=== PATIENT | female | born 1990 | race Caucasian/White ===

== ENCOUNTER 2017-02-02 15:48 | Emergency (ER) | payer MEDICAID, OTHER ==
[2017-02-02 17:46] VITALS: BP 117/62
--- NOTE | 2017-02-02 22:53 | ED ---
Katie Grant Seung-Jae, scribed for Freddy Horvath MD on 02/02/17 at 1610 . Substance Abuse/Use - HPI Summary HPI Summary: Pt is a 26 y/o F BIBA who comes to ED p/w unresponsiveness s/p OD. Unknown amount, type and time of drug ingested. Per EMS, the pt's spouse gave her an unknown amount of narcan. EMS administered 2mg Narcan nasally en route to [facility] ED. Level 5 caveat due to AMS characterized as unresponsiveness. - History Of Current Complaint Chief Complaint: EDSubstanceAbuse Stated Complaint: OVERDOSE Time Seen by Provider: 02/02/17 15:58 Hx Obtained From: EMS Hx From Patient Unobtainable Due To: Altered Mental Status - unresponsiveness Hx Last Menstrual Period: TUBAL 2014 Character: Other - Unresponsive Associated Signs And Symptoms: Altered Mental Status - characterized as unrepsonsiveness - Allergies/Home Medications Allergies/Adverse Reactions: Allergies Allergy/AdvReac Type Severity Reaction Status Date / Time Acetaminophen Allergy Severe Hives Verified 03/07/16 11:27 Home Medications: Home Medications NK [No Home Medications Reported] 02/02/17 [History Confirmed 02/02/17] PMH/Surg Hx/FS Hx/Imm Hx Endocrine/Hematology History: Denies: Hx Diabetes, Hx Thyroid Disease, Other Endocrine/Hematological Disorders Cardiovascular History: Denies: Hx Hypertension, Other Cardiovascular Problems/Disorders Respiratory History: Reports: Hx Asthma - exercise induced Denies: Hx Chronic Obstructive Pulmonary Disease (COPD), Other Respiratory Problems/Disorders GI History: Denies: Hx Ulcer, Other GI Disorders History: Denies: Other Problems/Disorders Musculoskeletal History: Denies: Other Musculoskeletal History Sensory History: Denies: Other Sensory Impairments Opthamlomology History: Denies: Other Sensory Impairments Neurological History: Denies: Other Neuro Impairments/Disorders Psychiatric History: Reports: Hx Anxiety - panic attacks, Hx Eating Disorder, Hx Depression Denies: Other Psychiatric Issues/Disorders - Surgical History Surgery Procedure, Year, and Place: R ankle fx and sprain 2009. x 2. Tubal Ligation Infectious Disease History: No Infectious Disease History: Denies: Hx Clostridium Difficile, Hx Hepatitis, Hx Human Immunodeficiency Virus (HIV), Hx of Known/Suspected MRSA, Hx Shingles, Hx Tuberculosis, Hx Known/ Suspected VRE, Hx Known/Suspected VRSA, History Other Infectious Disease, Traveled Outside the [place] in Last 30 Days - Family History Known Family History: Positive: Unknown - Level 5 caveat status - Social History Alcohol Use: None Hx Substance Use: Yes Substance Use Comment - Amount & Last Used: tested positive August 07 Smoking Status (MU): Never Smoked Tobacco Review of Systems - ROS Summary Review of Systems Summary: Level 5 caveat due to AMS characterized as unresponsiveness Neurological: Other - AMS - unresponsiveness All Other Systems Reviewed And Are Negative: No Physical Exam Triage Information Reviewed: Yes Vital Signs On Initial Exam: Initial Vitals Temp Pulse Resp BP Pulse Ox 96.9 F 95 16 127/74 98 02/02/17 15:55 02/02/17 15:55 02/02/17 15:55 02/02/17 15:55 02/02/17 15:55 Vital Signs Reviewed: Yes Completion Of Physical Exam Limited Due To: Level 5 Skin: Positive: Warm, Dry, Other - track lewis on the L shoulder and L arm Head/Face: Positive: Normal Head/Face Inspection Respiratory/Lung Sounds: Positive: Clear to Auscultation, Breath Sounds Present Cardiovascular: Positive: RRR Diagnostics - Vital Signs Vital Signs Temp Pulse Resp BP Pulse Ox 02/02/17 15:55 96.9 F 95 16 127/74 98 - Laboratory Lab Statement: Any lab studies that have been ordered have been reviewed, and results considered in the medical decision making process. Re-Evaluation - Re-Evaluation First Eval Re-Evaluation Time: 17:35 Change: Improved Course/Dx - Course Course Of Treatment: Ms. Byrne remained awake and breathing fine for two hours here after requiring narcan for an OD on heroin. - Diagnoses Provider Diagnoses: Heroin abuse Discharge - Discharge Plan Condition: Stable Disposition: HOME Patient Education Materials: Narcotic Abuse (ED) Referrals: [facility] PHYSICIAN REFERRAL [Outside] - 3 Days The documentation as recorded by the Katie rene Seung-Jae accurately reflects the service I personally performed and the decisions made by me, Freddy Horvath MD.
== END 2017-02-02 17:55 | disposition home or self-care (01) ==
LOC: ED 15:48
DX: F11.10 Opioid abuse, uncomplicated (principal); R41.82 Altered mental status, unspecified
CPT/HCPCS: 99282

== ENCOUNTER 2017-03-13 10:56 | Emergency (ER) | payer OTHER ==
[2017-03-13 11:11] VITALS: BP 133/69
--- NOTE | 2017-03-13 12:00 | UC ---
Lower Extremity/Ankle HPI - HPI Summary HPI Summary: CAUGHT RIGHT FOOT WHEN GOING UP THE STAIRS YESTERDAY. NOW HAS ANKLE PAIN AN MILD SWELLING. STATES SHE COULD NOT WEIGHT BEAR IMMEDIATELY AFTER THE INJURY BUT CAN LIMP ON IT NOW. - History of Current Complaint Chief Complaint: UCLowerExtremity Stated Complaint: SWOLLEN ANKLE Time Seen by Provider: 03/13/17 11:53 Hx Obtained From: Patient Hx Last Menstrual Period: 02/16/17 Onset/Duration: Sudden Onset, Lasting Hours, Still Present Severity Initially: Moderate Severity Currently: Moderate Pain Intensity: 7 Pain Scale Used: 0-10 Numeric Aggravating Factor(s): Standing, Ambulation Alleviating Factor(s): Rest Able to Bear Weight: Yes - WITH PAIN - Allergies/Home Medications Allergies/Adverse Reactions: Allergies Allergy/AdvReac Type Severity Reaction Status Date / Time Acetaminophen Allergy Severe Hives Verified 03/13/17 11:11 Home Medications: Home Medications FLUoxetine CAP* [Prozac CAP*] 10 mg PO DAILY 03/13/17 [History Confirmed ] PMH/Surg Hx/FS Hx/Imm Hx Respiratory History: Asthma - Surgical History Surgical History: Yes Surgery Procedure, Year, and Place: R ankle fx and sprain 2008. x 2. Tubal Ligation - Family History Known Family History: Positive: Unknown - Level 5 caveat status, Hypertension - Social History Alcohol Use: None Substance Use Type: None Substance Use Comment - Amount & Last Used: tested positive August 07 Smoking Status (MU): Never Smoked Tobacco - Immunization History Most Recent Influenza Vaccination: 2012 Most Recent Tetanus Shot: 2011 Most Recent Pneumonia Vaccination: n/a Review of Systems Constitutional: Negative Respiratory: Negative Cardiovascular: Negative Gastrointestinal: Negative Musculoskeletal: Arthralgia, Decreased ROM, Edema All Other Systems Reviewed And Are Negative: Yes Physical Exam Triage Information Reviewed: Yes Appearance: Well-Appearing, No Pain Distress, Well-Nourished Vital Signs: Initial Vital Signs Temp 98.0 F 03/13/17 11:06 Pulse 80 03/13/17 11:06 Resp 20 03/13/17 11:06 BP 133/69 03/13/17 11:06 Pulse Ox 100 03/13/17 11:06 Vital Signs Reviewed: Yes Eyes: Positive: Conjunctiva Clear ENT: Positive: Hearing grossly normal Neck: Positive: Supple Respiratory: Positive: No respiratory distress, No accessory muscle use Cardiovascular: Positive: Pulses Normal Abdomen Description: Positive: Soft Musculoskeletal: Positive: ROM Limited @ - RIGHT ANKLE, Edema @ - MILD EDEMA RIGHT ANKLE, Other: - TTP DIFFUSELY OVER ANKLE INCLUDING MALLEOLAR ZONE AND MEDIAL/LATERAL MALLEOLI. ACHILLES INTACT Neurological: Positive: Alert Psychological: Positive: Age Appropriate Behavior Skin: Negative: rashes Diagnostics - Radiology RIGHT ANKLE XRAY Xray Interpretation: No Acute Changes Radiology Interpretation Completed By: Radiologist Lower Extremity Course/Dx - Differential Dx/Diagnosis Provider Diagnoses: RIGHT ANKLE SPRAIN Discharge - Discharge Plan Condition: Stable Disposition: HOME Patient Education Materials: Ankle Sprain (ED) Additional Instructions: XRAY NEGATIVE FOR FRACTURE OR DISLOCATION. MARICARMEN WRAP AND GEL SPLINT FOR SUPPORT. REST, ICE, COMPRESS, ELEVATE. YOU SHOULD NOTICE SIGNIFICANT IMPROVEMENT OVER THE NEXT FEW DAYS. CALL THE NUMBER BELOW FOR ASSISTANCE IN ESTABLISHING WITH A PCP An additional resource available to assist in finding the appropriate physician for your health care needs is the [facility] Referral [facility] ([facility]). You may contact them by calling [phone].
--- NOTE | 2017-03-13 12:29 | RAD ---
HISTORY: Fall, right ankle pain COMPARISONS: December 08, 2012 VIEWS: 3, Frontal, lateral, and oblique views of the right ankle FINDINGS: BONE DENSITY: Normal. BONES: There are well-corticated bone fragments of the lateral medial malleoli, stable from the 2013 examination, consistent with remote avulsion injuries. There is no acute displaced fracture . JOINTS: There is no arthropathy. ALIGNMENT: There is no dislocation. SOFT TISSUES: Unremarkable. OTHER FINDINGS: None. IMPRESSION: NO ACUTE OSSEOUS INJURY. IF SYMPTOMS PERSIST, RECOMMEND REPEAT IMAGING.
== END 2017-03-13 13:00 | disposition home or self-care (01) ==
LOC: UCEAST 10:56
DX: S93.401A Sprain of unspecified ligament of right ankle, initial encounter (principal); X50.9XXA Other and unspecified overexertion or strenuous movements or postures, initial encounter; Y93.9 Activity, unspecified; Y99.9 Unspecified external cause status
CPT/HCPCS: 99213; G0463

== ENCOUNTER 2017-03-25 13:04 | Emergency (ER) | payer OTHER ==
[2017-03-25 13:28] VITALS: BP 110/73
--- NOTE | 2017-03-25 14:27 | UC ---
Philip Grant Angela, scribed for [facility] HospitalDaniel MD on 03/25/17 at 1357 . General HPI - HPI Summary HPI Summary: This pt is a 26 y/o female presenting to [facility] c/o green discharge from her eyes and sore throat x6 days. Pt reports every day she wakes up with crust and has to peel them off. Pt rates a 7 out of 10 sore throat pain. She denies any trauma to her eyes and prior eye infections. Pt notes having diarrhea yesterday , described as watery. She denies nausea, vomiting, fever, abd pain. She notes a facial rash from an allergic reaction to a soap. Pt has a PMHx of asthma for which she uses an inhaler. MDs Note: Vital signs are stable. Afebrile. 7/10 discomfort from eye discharge. Non- smoker. Previous visit history is noncontributory to present complaint. Nurses Note: Pt states green discharge from eyes that started 5 days ago, along with sore throat. - History of Current Complaint Chief Complaint: UCGeneralIllness Stated Complaint: EYE COMPLAINT Time Seen by Provider: 03/25/17 13:43 Hx Obtained From: Patient, Family/[employer]aster - Hx Last Menstrual Period: 03/09/17 Onset/Duration: Lasting Days Associated Signs & Symptoms: Positive: Diarrhea, Other - Eye discharge, sore throat. Negative: Chest Pain, Fever, Headache, Nausea, Vomiting - Allergy/Home Medications Allergies/Adverse Reactions: Allergies Allergy/AdvReac Type Severity Reaction Status Date / Time Acetaminophen Allergy Severe Hives Verified 03/25/17 13:22 PMH/Surg Hx/FS Hx/Imm Hx Other Endocrine History: DENIES: Diabetes Other Cardiovascular History: DENIES: HTN, Cardiac disease Respiratory History: Asthma - Surgical History Surgical History: Yes Surgery Procedure, Year, and Place: x 2. Tubal Ligation - Family History Known Family History: Positive: Unknown - Level 5 caveat status, Hypertension - Social History Alcohol Use: None Substance Use Type: None Substance Use Comment - Amount & Last Used: tested positive August 07 Smoking Status (MU): Never Smoked Tobacco - Immunization History Most Recent Influenza Vaccination: 2012 Most Recent Tetanus Shot: 2011 Most Recent Pneumonia Vaccination: n/a Review of Systems Constitutional: Negative Skin: Negative Eyes: Other - discharge from bilateral eyes ENT: Sore Throat Respiratory: Negative Cardiovascular: Negative Gastrointestinal: Negative, Diarrhea - yesterday Motor: Negative Neurovascular: Negative Musculoskeletal: Negative Neurological: Negative All Other Systems Reviewed And Are Negative: Yes Physical Exam Triage Information Reviewed: Yes Vital Signs: Initial Vital Signs Temp 98.1 F 03/25/17 13:23 Pulse 86 03/25/17 13:23 Resp 20 03/25/17 13:23 BP 110/73 03/25/17 13:23 Pulse Ox 98 03/25/17 13:23 Vital Signs Reviewed: Yes - Additional Comments The patient is well-nourished in no acute distress and in no acute pain. The skin is warm and dry and skin color reflects adequate perfusion. HEENT: The head is normocephalic and atraumatic. The pupils are equal and reactive. The conjunctivae are clear and without drainage. Nares are patent and without drainage. Mouth reveals moist mucous membranes and the throat is without erythema and exudate. The external ears are intact. The ear canals are patent and without drainage. The tympanic membranes are intact. THERE ARE SCATTERED EXCORIATED LESIONS ON THE PTS FACE (FROM ITCHING AFTER AN ALLERGIC REACTION, ACCORDING TO THE PT). THE PT DOES HAVE ERYTHEMA IN THE POSTERIOR PHARYNX. THE SCLERA ARE MIDLY INJECTED. Neck is supple with full range of motion and non-tender. THERE IS NO ANTERIOR ADENOPATHY. Respiratory: Chest is non-tender. Lungs are clear to auscultation and breath sounds are symmetrical and equal. Cardiovascular: Hear is regular rate and rhythm. There is no murmur or rub auscultated. There is no peripheral edema and pulses are symmetrical and equal. Abdomen: The abdomen is soft and non-tender. There are normal bowel sounds heard in all four quadrants and there is no organomegaly palpated. Musculoskeletal: There is no back pain noted. Extremities are non-tender with full range of motion. There is good capillary refill. There is no peripheral edema or calf tenderness elicited. Neurological: Patient is alert and oriented to person, place and time. The patient has symmetrical motor strength in all four extremities. Cranial nerves are grossly intact. Deep tendon reflexes are symmetrical and equal in all four extremities. Psychiatric: The patient has an appropriate affect and does not exhibit any anxiety or depression. Course/Dx - Course Course Of Treatment: Medications have been included in the original chart and reviewed. Normal BP reading and no follow-up instructions required. On exam, THERE ARE SCATTERED EXCORIATED LESIONS ON THE PTS FACE (FROM ITCHING AFTER AN ALLERGIC REACTION, ACCORDING TO THE PT). THERE IS NO ANTERIOR ADENOPATHY. THE PT DOES HAVE ERYTHEMA IN THE POSTERIOR PHARYNX. THE SCLERA ARE MIDLY INJECTED. A rapid strep test was obtained and it was positive. Patient has been given an antibiotic because of increased consistent with health history. The risks and benefits of antibiotic treatment have been discussed and patient has voiced understanding of these risks including the possibility of developing clostridium difficile enterocolitis. - Differential Dx - Multi-Symptom Differential Diagnoses: Other - viral vs bacterial pharyngitis Provider Diagnoses: 1. Strep throat. 2. Conjunctivitis. 3. Facial rash: unclear etiology Discharge - Discharge Plan Condition: Stable Disposition: HOME Prescriptions: Amoxicillin PO (*) [Amoxicillin 875 MG (*)] 875 mg PO BID #20 tab MDD 2 Tobramycin 0.3% OPHTH.RENETTA* 1 drop BOTH EYES Q4H #1 btl Patient Education Materials: Strep Throat (ED), Conjunctivitis (ED) Referrals: No Primary Care Phys,NOPCP [Primary Care Provider] - Additional Instructions: WE DISCUSSED: You have 2 problems: 1. You have strep throat. 2. You have conjunctivitis. I have given you eye drops and amoxicillin pills to take for the throat. KEEP THROAT MOIST WITH LOZENGES; TEA AND HONEY. USE WARM WATER GARGLES 3-4 TIMES A DAY. CEPASTAT LOZENGES FOR MODERATE PAIN. IBUPROFEN FOR DISCOMFORT. USEFUL HOME REMEDIES: WARM WATER GARGLES, WITH TSP OF SALT PER 8 OUNCES OF WATER, GARGLE FOR A FEW SECONDS AND SPIT OUT; GARGLE AND SPIT OUT; EVERY THREE HOURS. AND/OR: WARM WATER OR TEA, HONEY AND LEMON; 2-3 CUPS A DAY. FOLLOW UP IN 10 DAYS NEEDED. SOONER IF INCREASED PAIN, TEMPERATURE, DIFFICULTY BREATHING OR SWALLOWING. 3. Recheck with your doctor if you are not improving in 4 days. Sooner for new symptoms or fever. The documentation as recorded by the Philip rene Angela accurately reflects the service I personally performed and the decisions made by me, Daniel Armijo MD.
== END 2017-03-25 14:30 | disposition home or self-care (01) ==
LOC: UCEAST 13:04
DX: J02.0 Streptococcal pharyngitis (principal); H10.9 Unspecified conjunctivitis; R21 Rash and other nonspecific skin eruption; J45.909 Unspecified asthma, uncomplicated
CPT/HCPCS: 87651; 99212; G0463

== ENCOUNTER 2017-04-30 10:50 | Emergency (ER) | payer MEDICAID, OTHER ==
[2017-04-30 11:38] VITALS: BP 118/55
--- NOTE | 2017-04-30 12:06 | UC ---
Respiratory Complaint HPI - HPI Summary HPI Summary: ONSET OF ST AND HOARSE VOICE YESTERDAY. NO FEVER, N/V/D. MILD COUGH AND CONGESTION BUT MOSTLY FEELS TIGHT IN HER LUNGS. - History of Current Complaint Chief Complaint: UCGeneralIllness Stated Complaint: SORE THROAT Time Seen by Provider: 04/30/17 11:59 Hx Obtained From: Patient Hx Last Menstrual Period: 04/19/17 Onset/Duration: Gradual Onset, Lasting Days - 1 DAY, Still Present Timing: Constant Severity Initially: Moderate Severity Currently: Moderate Pain Intensity: 7 Pain Scale Used: 0-10 Numeric Character: Cough: Nonproductive Aggravating Factors: Deep Breaths Alleviating Factors: Nothing Associated Signs And Symptoms: Positive: Pleuritic Chest Pain, URI, Nasal Congestion. Negative: Dyspnea, Fever, Wheezing - Allergies/Home Medications Allergies/Adverse Reactions: Allergies Allergy/AdvReac Type Severity Reaction Status Date / Time Acetaminophen Allergy Severe Hives Verified 04/30/17 11:40 PMH/Surg Hx/FS Hx/Imm Hx Respiratory History: Asthma Psychological History: Anxiety, Depression - Surgical History Surgical History: Yes Surgery Procedure, Year, and Place: x 2. Tubal Ligation - Family History Known Family History: Positive: Unknown - Level 5 caveat status, Hypertension - Social History Alcohol Use: None Substance Use Type: None Substance Use Comment - Amount & Last Used: tested positive August 07 Smoking Status (MU): Never Smoked Tobacco Household Exposure Type: Cigarettes - Immunization History Most Recent Influenza Vaccination: 2012 Most Recent Tetanus Shot: 2011 Most Recent Pneumonia Vaccination: n/a Review of Systems Constitutional: Negative ENT: Sore Throat, Nasal Discharge Respiratory: Cough Cardiovascular: Negative Gastrointestinal: Negative All Other Systems Reviewed And Are Negative: Yes Physical Exam Triage Information Reviewed: Yes Appearance: Well-Appearing, No Pain Distress, Well-Nourished Vital Signs: Initial Vital Signs Temp 98.8 F 04/30/17 11:34 Pulse 91 04/30/17 11:34 Resp 16 04/30/17 11:34 BP 118/55 04/30/17 11:34 Pulse Ox 97 04/30/17 11:34 Vital Signs Reviewed: Yes Eyes: Positive: Conjunctiva Clear ENT: Positive: Hearing grossly normal, Pharynx normal, TMs normal Neck: Positive: Supple Respiratory Exam: Normal Cardiovascular Exam: Normal Abdomen Description: Positive: Soft Musculoskeletal: Positive: No Edema Neurological: Positive: Alert Psychological: Positive: Age Appropriate Behavior Skin: Negative: rashes UC Diagnostic Evaluation - Laboratory O2 Sat by Pulse Oximetry: 97 Respiratory Course/Dx - Differential Dx/Diagnosis Provider Diagnoses: ACUTE URI Discharge - Discharge Plan Condition: Stable Disposition: HOME Prescriptions: Albuterol HFA INHALER* [Ventolin HFA Inhaler*] 2 puff INH Q4H PRN #1 mdi PRN Reason: Shortness Of Breath predniSONE TAB* [Deltasone TAB*] 40 mg PO DAILY #10 tab Patient Education Materials: Upper Respiratory Infection (ED) Forms: *Gen. Provider Communication Referrals: No Primary Care Phys,NOPCP [Primary Care Provider] - Additional Instructions: CALL THE NUMBER BELOW FOR ASSISTANCE IN ESTABLISHING WITH A PCP An additional resource available to assist in finding the appropriate physician for your health care needs is the Physician Referral Center ([facility]). You may contact them by calling [phone]. RETURN FOR RE-EVALUATION IF YOU ARE NOT IMPROVING OVER THE NEXT 1-2 WEEKS.
== END 2017-04-30 12:27 | disposition home or self-care (01) ==
LOC: UCEAST 10:50
DX: J06.9 Acute upper respiratory infection, unspecified (principal); J45.909 Unspecified asthma, uncomplicated; Z11.4 Encounter for screening for human immunodeficiency virus [HIV]
CPT/HCPCS: 36415; 86703; 99212; G0463

== ENCOUNTER 2019-05-12 19:41 | Emergency (ER) | payer OTHER ==
[2019-05-12 19:53] VITALS: BP 142/86
--- NOTE | 2019-05-12 20:01 | UC ---
General HPI - HPI Summary HPI Summary: 28 yo female c/o sore throat x last 3 days. No fever /chills. No cough / sob / cp / palpitations. No GI issues. No issues reported. No rash. Does have several facial sores that she reports are better. Reports that she is prone to strep throat. - History of Current Complaint Chief Complaint: UCGeneralIllness Stated Complaint: THROAT PAIN Time Seen by Provider: 05/12/19 19:47 Hx Obtained From: Patient Hx Last Menstrual Period: 04/19/17 Pain Intensity: 3 - Allergy/Home Medications Allergies/Adverse Reactions: Allergies Allergy/AdvReac Type Severity Reaction Status Date / Time acetaminophen [From Tylenol] Allergy See Comment Verified 05/12/19 19:57 PMH/Surg Hx/FS Hx/Imm Hx Previously Healthy: Yes - Surgical History Surgical History: Yes Surgery Procedure, Year, and Place: x 2. Tubal Ligation - Family History Known Family History: Positive: Unknown - Level 5 caveat status, Hypertension - Social History Alcohol Use: None Substance Use Type: None Substance Use Comment - Amount & Last Used: tested positive August 07 Smoking Status (MU): Never Smoked Tobacco Household Exposure Type: Cigarettes - Immunization History Most Recent Influenza Vaccination: 2012 Most Recent Tetanus Shot: 2011 Most Recent Pneumonia Vaccination: n/a Review of Systems All Other Systems Reviewed And Are Negative: Yes Constitutional: Positive: Negative Skin: Positive: Other - see hpi Eyes: Positive: Negative ENT: Positive: Sore Throat Respiratory: Positive: Negative Cardiovascular: Positive: Negative Gastrointestinal: Positive: Negative Genitourinary: Positive: Negative Motor: Positive: Negative Neurovascular: Positive: Negative Musculoskeletal: Positive: Negative Neurological: Positive: Negative Psychological: Positive: Negative Is Patient Immunocompromised?: No Physical Exam Triage Information Reviewed: Yes Appearance: Well-Appearing, Well-Nourished Vital Signs: Initial Vital Signs Temp 99.3 F 05/12/19 19:48 Pulse 104 05/12/19 19:48 Resp 16 05/12/19 19:48 BP 142/86 05/12/19 19:48 Pulse Ox 100 05/12/19 19:48 Vital Signs Reviewed: Yes Eye Exam: Normal ENT: Positive: Pharyngeal erythema, TMs normal, Tonsillar swelling Neck exam: Normal Neck: Positive: Supple, Nontender, No Lymphadenopathy Respiratory Exam: Normal Cardiovascular Exam: Normal Abdominal Exam: Normal Musculoskeletal Exam: Normal - moves x 4 ext's. gait steady. Neurological Exam: Normal - grossly nonfocal. Psychological Exam: Normal - conversing easily and appropriately. nad. Skin Exam: Other - no visible or reported rash. Several superficial wounds of varying degrees of healing over face, c/w itching / scab picking. No margarito cellulitis. Course/Dx - Course Course Of Treatment: HR noted triage, pt more relexed by d/c. RST + Will send rx mupirocin re facial sores. Likely a element of staph involved. Encourage f/u with a pcp. Questions as posed answered to the best of my ability. - Diagnoses Provider Diagnosis: Strep throat Discharge ED - Sign-Out/Discharge Documenting (check all that apply): Patient Departure All imaging exams completed and their final reports reviewed: No Studies - Discharge Plan Condition: Stable Disposition: HOME Prescriptions: Amoxicillin PO (*) [Amoxicillin 875 MG (*)] 875 mg PO BID #19 tab Mupirocin 2% OINT* [Bactroban 2 % Oint*] 1 applic TOPICAL BID 10 Days #1 tube Patient Education Materials: Strep Throat (ED), Tonsillitis (ED) Referrals: [facility] [Outside] No Primary Care Phys,NOPCP [Primary Care Provider] - Additional Instructions: Hydrate. Keep hands away from your face (sores) as much as possible. Change your toothbrush and change your toothpaste in the next couple days. Please seek medical attention for worse or new problems. - Billing Disposition and Condition Condition: STABLE Disposition: Home
[2019-05-12] MEDS ORDERED: Amoxicillin PO (*) 500 MG CAP PO ONE (20:22)
== END 2019-05-12 20:37 | disposition home or self-care (01) ==
LOC: UCEAST 19:41
DX: J02.0 Streptococcal pharyngitis (principal); Z88.8 Allergy status to other drugs, medicaments and biological substances
CPT/HCPCS: 87651; 99212; A9270-GY; G0463

== ENCOUNTER 2019-06-01 15:13 | Emergency (ER) | payer OTHER ==
[2019-06-01 15:26] VITALS: BP 116/85
--- NOTE | 2019-06-01 15:39 | UC ---
Throat Pain/Nasal Rocky HPI - HPI Summary HPI Summary: 28 yo with 3 day hx of cough and sore throat, without fever. Some shortness of breath, malaise, has missed work the psat 2 days. Hx of asthma and bronchitis in the past. Gets second hat smoke exposure. Reports daily vomiting post meals for the past 3 weeks, without weight loss. Past tubal ligation, LNMP 3 weeks ago, neg test last week at [facility]. Normal stools. She is not particularly concerned about this at this time. - History of Current Complaint Chief Complaint: UCRespiratory Stated Complaint: URI Time Seen by Provider: 06/01/19 15:32 Hx Obtained From: Patient Hx Last Menstrual Period: 3 WEEKS AGO Onset/Duration: Sudden Onset, Lasting Days - 3 Severity: Mild Pain Intensity: 0 Cough: Productive Associated Signs & Symptoms: Positive: Dysphagia, Wheezing, Vomiting. Negative : Fever - Epiglottits Risk Factors Epiglottis Risk Factors: Negative - Allergies/Home Medications Allergies/Adverse Reactions: Allergies Allergy/AdvReac Type Severity Reaction Status Date / Time acetaminophen [From Tylenol] Allergy See Comment Verified 06/01/19 15:24 PMH/Surg Hx/FS Hx/Imm Hx Previously Healthy: Yes Respiratory History: Asthma - Surgical History Surgical History: Yes Surgery Procedure, Year, and Place: x 2. Tubal Ligation - Family History Known Family History: Positive: Hypertension - Social History Occupation: Employed Full-time Lives: With Family Alcohol Use: None Substance Use Type: None Substance Use Comment - Amount & Last Used: tested positive August 07 Smoking Status (MU): Never Smoked Tobacco Household Exposure Type: Cigarettes - Immunization History Most Recent Influenza Vaccination: 2012 Most Recent Tetanus Shot: 2011 Most Recent Pneumonia Vaccination: n/a Review of Systems All Other Systems Reviewed And Are Negative: Yes Constitutional: Positive: Chills, Fatigue Skin: Positive: Negative Eyes: Positive: Negative ENT: Positive: Sore Throat, Nasal Discharge, Sinus Congestion Respiratory: Positive: Cough Cardiovascular: Negative: Palpitations, Chest Pain Gastrointestinal: Positive: Vomiting, Nausea. Negative: Abdominal Pain, Diarrhea Genitourinary: Positive: Negative Motor: Positive: Negative Neurovascular: Positive: Negative Musculoskeletal: Positive: Negative Neurological: Positive: Negative Is Patient Immunocompromised?: No Physical Exam Triage Information Reviewed: Yes Appearance: Ill-Appearing - looks fatigued and unwell, Other: - Looks well hydrated. Vital Signs: Initial Vital Signs Temp 98.7 F 06/01/19 15:24 Pulse 78 06/01/19 15:24 Resp 24 06/01/19 15:24 BP 116/85 06/01/19 15:24 Pulse Ox 98 06/01/19 15:24 Eyes: Positive: Conjunctiva Clear ENT: Positive: Pharyngeal erythema, TMs normal, Tonsillar swelling. Negative: Tonsillar exudate Neck: Positive: Supple, Nontender, No Lymphadenopathy Respiratory: Positive: Decreased breath sounds, Wheezing - upper lung landrum. Cardiovascular Exam: Normal Abdomen Description: Positive: No Organomegaly, Soft, Other: - Very mild tenderness RUQ without guarding or rebound. Musculoskeletal Exam: Normal Neurological: Positive: Alert, Muscle Tone Normal Skin Exam: Normal Throat Pain/Nasal Course/Dx - Course Course Of Treatment: amoxicillin for treatment of tonsillitis/bronchitis. Will refer to Physician referral service to establish primary care and arrange evaluation of vomiting. - Differential Dx/Diagnosis Differential Diagnosis/HQI/PQRI: Laryngitis, Tonsillitis, URI Provider Diagnosis: Tonsillitis Discharge ED - Sign-Out/Discharge Documenting (check all that apply): Patient Departure All imaging exams completed and their final reports reviewed: No Studies - Discharge Plan Condition: Stable Disposition: HOME Prescriptions: Amoxicillin PO (*) [Amoxicillin 875 MG (*)] 875 mg PO BID #14 tab Patient Education Materials: Tonsillitis (ED) Forms: *Work Release Referrals: No Primary Care Phys,NOPCP [Primary Care Provider] - [facility] [place]Outside] Additional Instructions: Take the full course of antibitoics. Please call the physician referral service to establish with a primary care physician to consider if testing is needed to evaluate your recurrent vomiting. - Billing Disposition and Condition Condition: STABLE Disposition: Home
== END 2019-06-01 16:00 | disposition home or self-care (01) ==
LOC: UCEAST 15:13
DX: J03.90 Acute tonsillitis, unspecified (principal); J45.909 Unspecified asthma, uncomplicated; R53.83 Other fatigue; R68.83 Chills (without fever); R09.81 Nasal congestion; R09.89 Other specified symptoms and signs involving the circulatory and respiratory systems; R11.2 Nausea with vomiting, unspecified; Z88.8 Allergy status to other drugs, medicaments and biological substances
CPT/HCPCS: 99212; G0463